=== PATIENT | male | born 1970 ===

== ENCOUNTER → 2025-10-29 01:18 | Outpatient (CLI) | payer MEDICAID, SELFPAY ==
--- NOTE | 2025-10-29 | DI.RAD_ITS ---
Exam(s) XR CERVICAL SPINE COMP 4-5V EXAM: XR CERVICAL SPINE COMP 4-5V CLINICAL HISTORY: PAIN IN L SHOULDER, RADICULOPATHY CERVICAL REGION M54.12. TECHNIQUE: 2D digital imaging was performed. COMPARISON: No exams were available for comparison FINDINGS: Five views No evidence of fracture, listhesis, nor offset of the spinal laminar line. There is chronic disc space narrowing at C4-5, C5-6, and C6-7 levels. There are moderate size bilateral Luschka joint osteophytes at C4-5 level; no Luschka joint osteophytes at C5-6 and C6-7 levels. There are no cervical ribs. Some degenerative change seen in the facet joints at C6-7 level. Spinous process is are intact. Bone density normal. No osseous lesions IMPRESSION: Multilevel degenerative disc disease at C4-5, C5-6, and C6-7 levels. No fractures evident. DATA REPOSITORY: RADIATION DOSE DELIVERED:
== END ==
PROVIDERS: PCP Neuromusculoskeletal Medicine & OMM; Visit Provider Specialist/Technologist Athletic Trainer
DX: M25.512 Pain in left shoulder (principal); M54.12 Radiculopathy, cervical region; M50.321 Other cervical disc degeneration at C4-C5 level; M50.322 Other cervical disc degeneration at C5-C6 level; M50.323 Other cervical disc degeneration at C6-C7 level
CPT/HCPCS: 72050